=== PATIENT | female | born 1990 | race Hispanic/Latino ===

== ENCOUNTER 2018-02-23 10:44 | Emergency (ER) | payer MEDICAID ==
[2018-02-23 11:24] LABS: RAPID GROUP A STREP NEGATIVE (NEGATIVE)
[2018-02-23] MEDS ORDERED: ACETAMINOPHEN EXTRA STRENGTH 500 MG TABLET ONE (11:47)
== END 2018-02-23 12:26 | disposition home or self-care (01) ==
LOC: EDH 10:44
DX: J11.1 Influenza due to unidentified influenza virus with other respiratory manifestations (principal); R05 Cough
CPT/HCPCS: 71046; 81025; 87804; 87880

== ENCOUNTER 2018-11-26 06:07 | Day surgery (SDC) | payer MEDICAID ==
[2018-11-22 15:34] LABS: BASOPHILS % (AUTO) 0.4 % (0.0-5.0); HEMATOCRIT 40.5 % (36-48); LYMPHOCYTES % (AUTO) 20.9 % (21.0-51.0); MEAN CORPUSCULAR HEMOGLOBIN 26.4 pg (27.0-33.0); MEAN CORPUSCULAR HGB CONC 32.5 g/dL (32.0-36.0); MEAN CORPUSCULAR VOLUME 81.3 fL (79-99); MONOCYTES % (AUTO) 8.7 % (3.0-13.0); PLATELET COUNT (AUTO) 314 K/uL (130-400); RED BLOOD CELL COUNT(AUTO) 4.98 MIL/uL (4.00-5.50); RED CELL DISTRIBUTION WIDTH 12.7 % (11.0-15.5); WHITE BLOOD COUNT (AUTO) 7.3 K/uL (4.8-10.8)
[~2018-11-26] VITALS: Ht 154.9 cm; Wt 85.3 kg
[2018-11-26] VITALS (14 sets, daily range): BP systolic 111–129; BP diastolic 54–75
[2018-11-26] MEDS ORDERED: LACTATED RINGERS 1000ML 1,000 ML IV ONE (06:28)
[2018-11-26] MEDS ORDERED: LIDOCAINE PF 2% 5ML ABBOJECT ONE (09:13)
[2018-11-26] MEDS ORDERED: MIDAZOLAM HCL 1 MG/ML 2ML VIAL ONE (09:14)
[2018-11-26] MEDS ORDERED: ROCURONIUM 10MG/1ML SYR 10 MG/ML ML ONE (09:14)
[2018-11-26] MEDS ORDERED: FENTANYL CITRATE PF 50 MCG/1 ML 2ML VIAL ONE (09:14)
[2018-11-26] MEDS ORDERED: PROPOFOL 10 MG/ML 20ML VIAL IV ONE (09:14)
[2018-11-26] MEDS ORDERED: DEXAMETHASONE SOD PHOSPHATE 10MG/ML 1ML VIAL ONE (09:16)
[2018-11-26] MEDS ORDERED: GLYCOPYRROLATE 1 MG/5 ML SYRINGE ONE (09:17)
[2018-11-26] MEDS ORDERED: ONDANSETRON HCL 4 MG/2 ML VIAL ONE (09:17)
[2018-11-26] MEDS ORDERED: NEOSTIGMINE 5MG/5ML SYR IV ONE (09:17)
[2018-11-26] MEDS ORDERED: KETOROLAC TROMETHAMINE 30MG/ML ONE (09:17)
[2018-11-26] MEDS ORDERED: MEPERIDINE-PF 25 MG/ML SYG ONE (10:41)
--- NOTE | 2018-11-26 11:15 | NUR ---
PATIENT ARRIVED PATIENT BROUGHT TO DAY PATIENT VIA BED, PATIENT AWAKE AND ORIENTED BUT DROWSY. PATIENT STATES SHE HAS PAIN OF 10 OUT OF 10. EXPLAINED TO PATIENT THAT SHE WAS GIVEN DEMEROL IN PACU BY FLACO BAIN. DRESSINGS (BANDAIDS X2) TO MID ABDOMEN. BANDAIDS ARE DRY AND INTACT, NO DRAINAGE OR BLEEDING NOTED.
--- NOTE | 2018-11-26 11:30 | NUR ---
CALLED DR MITCHELL'S OFFICE AND SPOKE WITH OBED. INFORMED HER THAT PATIENT NEEDS PRESCRIPTION FOR PAIN MEDICATIONS. PER OBED, SHE WILL RELAY MESSAGE TO THE NURSE.
--- NOTE | 2018-11-26 11:50 | NUR ---
SPOKE WITH DR LR'S NURSE, RAMSES. PER RAMSES SHE RECEIVED A VERBAL ORDER FROM DR LR REGARDING PAIN MEDICATION FOR THE PATIENT. RAMSES WILL CALL IN PRESCRIPTION TO PATIENT'S PHARMACY ([facility] IN [place]). '
--- NOTE | 2018-11-26 12:00 | NUR ---
DISCHARGE INSTRUCTIONS PROVIDED TO PATIENT'S MOTHER/CAREGIVER. PROVIDED FOLLOW UP APPOINTMENT PROVIDED AND INSTRUCTIONS ON LAPAROSCOPIC BTL AFTER CARE GIVEN WELL HANDOUTS. SIGNS/SYMPTOMS TO MONITOR/REPORT WERE ALSO EXPLAINED. ALL QUESTIONS/CONCERNS ADDRESSED.
--- NOTE | 2018-11-26 12:10 | NUR ---
PATIENT DISCHARGED FROM FACILITY VIA WHEELCHAIR BY MYSELF. PATIENT ASSISTED INTO PRIVATE VEHICLE DRIVEN BY HER MOTHER.
== END 2018-11-26 12:10 ==
LOC: DAH 06:07
PROVIDERS: ATTEND Specialist
DX: Z30.2 Encounter for sterilization (principal); E66.01 Morbid (severe) obesity due to excess calories
CPT/HCPCS: 36415; 58671; 84703; 85025; 86850; 86900; 86901; A4215 ×2; A4221; A4222; A4223; A4264; A4351; A6260; C1769 ×2; J1100; J1885; J2001; J2175; J2250; J2405; J2704; J2710; J3010; J3490; J7030; J7120

== ENCOUNTER 2019-04-22 09:53 | Emergency (ER) | payer MEDICAID ==
[2019-04-22 10:19] LABS: BASOPHILS % (AUTO) 0.8 % (0.0-5.0); EOSINOPHILS % (AUTO) 6.5 % (0.0-8.0); HEMATOCRIT 38.4 % (36-48); LYMPHOCYTES % (AUTO) 23.5 % (21.0-51.0); MEAN CORPUSCULAR HEMOGLOBIN 25.1 pg (27.0-33.0); MEAN CORPUSCULAR HGB CONC 31.3 g/dL (32.0-36.0); MEAN CORPUSCULAR VOLUME 80.3 fL (79-99); MONOCYTES % (AUTO) 10.4 % (3.0-13.0); NEUTROPHILS % (AUTO) 58.6 % (40.0-77.0); PLATELET COUNT (AUTO) 269 K/uL (130-400); RED BLOOD CELL COUNT(AUTO) 4.78 MIL/uL (4.00-5.50); RED CELL DISTRIBUTION WIDTH 12.6 % (11.0-15.5); WHITE BLOOD COUNT (AUTO) 6.4 K/uL (4.8-10.8)
[2019-04-22 10:25] LABS: CARBON DIOXIDE 30 mmol/L (21-32); CHLORIDE 104 mmol/L (101-111); CREATININE 0.6 mg/dL (0.5-1.5); GLOMERULAR FILTR. RATE CALC 127 mL/min (>60); GLUCOSE,RANDOM 71 mg/dL (70-105); POTASSIUM 4.1 mmol/L (3.5-5.1); SODIUM SERUM 139 mmol/L (136-145); UREA NITROGEN, BLOOD 14 mg/dL (7-18)
[2019-04-22 10:27] LABS: APPEARANCE,URINE Cloudy (CLEAR); BILIRUBIN,URINE Negative (NEGATIVE); COLOR,URINE Yellow (YELLOW); GLUCOSE, URINE (UA) Negative (NEGATIVE); KETONES,URINE Negative (NEGATIVE); LEUKOCYTE ESTERASE ,URINE Moderate (NEGATIVE); NITRATE,URINE Negative (NEGATIVE); OCCULT BLOOD,URINE Negative (NEGATIVE); PH,URINE 7.5 (5.0-8.0); PROTEIN,URINE Negative (NEGATIVE)
[2019-04-22 10:29] LABS: ALANINE AMINOTRANSFERASE 19 U/L (12-78); ALBUMIN 3.3 g/dL (3.5-5.0); ASPARTATE AMINOTRANSFERASE 12 U/L (10-37); BILIRUBIN,TOTAL 0.3 mg/dL (0.2-1.0); CREATINE KINASE, TOTAL 60 U/L (21-232); TOTAL PROTEIN, SERUM 6.8 g/dL (6.0-8.3)
[2019-04-22 10:30] LABS: HCG,QUAL RESULT NEGATIVE (NEGATIVE)
[2019-04-22 10:34] LABS: ACETAMINOPHEN < 1 mcg/mL (10-30); ALCOHOL, BLOOD < 3 mg/dL (0-10); SALICYLATE < 2.8 mg/dL (2.8-20.0)
[2019-04-22 10:35] LABS: AMPHET/METH SCREEN,URINE NEGATIVE (NEGATIVE); BARBITURATE SCREEN, URINE NEGATIVE (NEGATIVE); BENZODIAZEPINES SCREEN,URINE NEGATIVE (NEGATIVE); CANNABINOID SCREEN,URINE NEGATIVE (NEGATIVE); COCAINE SCREEN,URINE NEGATIVE (NEGATIVE); OPIATE SCREEN,URINE NEGATIVE (NEGATIVE); PHENCYCLIDINE SCREEN,URINE NEGATIVE (NEGATIVE)
[2019-04-22 10:52] LABS: INR 1.03 (0.85-1.15); PARTIAL THROMBOPLASTIN TIME 35.3 SEC (26.3-35.5); PROTHROMBIN TIME 10.8 SEC (9.6-11.6)
[2019-04-22] MEDS ORDERED: CEPHALEXIN 500 MG CAPSULE ONE (11:02)
[2019-04-22 11:12] LABS: BACTERIA,URINE Few /HPF (None Seen); RBC,URINE 0-1 /HPF (0-1); SQUAMOUS EPITHELIAL CELL,UR Moderate /HPF (0-2)
[2019-04-22] MEDS ORDERED: ASPIRIN 325 MG TABLET ONE (12:57)
== END 2019-04-22 13:19 | disposition home or self-care (01) ==
LOC: EDH 09:53
DX: R07.89 Other chest pain (principal); F41.9 Anxiety disorder, unspecified; N39.0 Urinary tract infection, site not specified; Z88.0 Allergy status to penicillin
CPT/HCPCS: 36415; 71045; 80053; 80305; 81001; 81025; 82550; 84484; 85025; 85610; 85730; 87077; 87088; 87186; 93005; 99285; G0480 ×2; G0481

== ENCOUNTER 2021-11-16 09:28 | Emergency (ER) | payer MEDICAID ==
[~2021-11-16] VITALS: Ht 152.4 cm; Wt 81.6 kg
[2021-11-16] MEDS ORDERED: IBUPROFEN 600 MG TABLET PO ONE (12:00)
[2021-11-16] MEDS ORDERED: CYCLOBENZAPRINE HCL 10 MG TABLET PO ONE (12:00)
[2021-11-16 12:18] LABS: APPEARANCE,URINE CLOUDY (CLEAR); BILIRUBIN,URINE MODERATE mg/dL (NEGATIVE); COLOR,URINE RED (YELLOW); GLUCOSE, URINE (UA) NEGATIVE (NEGATIVE); KETONES,URINE 15 mg/dL (NEGATIVE); LEUKOCYTE ESTERASE ,URINE MODERATE Leu/uL (NEGATIVE); NITRATE,URINE POSITIVE (NEGATIVE); OCCULT BLOOD,URINE LARGE (NEGATIVE); PH,URINE 6.5 (5.0-8.0); PROTEIN,URINE >=300 mg/dL (NEGATIVE)
[2021-11-16 12:38] LABS: RBC,URINE TNTC /HPF (0-1)
[2021-11-16 12:39] LABS: BACTERIA,URINE Moderate /HPF (None Seen)
[2021-11-16] MEDS ORDERED: IBUP-2070 PO (13:21)
[2021-11-16] MEDS ORDERED: CYCL10TA16 PO (13:21)
[2021-11-16 13:37] VITALS: BP 134/78
== END 2021-11-16 13:34 | disposition home or self-care (01) ==
LOC: EDH 09:28
DX: R07.89 Other chest pain (principal); R51.9 Headache, unspecified; M54.2 Cervicalgia; M54.6 Pain in thoracic spine; Z88.0 Allergy status to penicillin; Z79.899 Other long term (current) drug therapy; Z98.890 Other specified postprocedural states; Y08.89XA Assault by other specified means, initial encounter; Y93.89 Activity, other specified; Y92.89 Other specified places as the place of occurrence of the external cause; Y99.8 Other external cause status
CPT/HCPCS: 70450; 71045; 72125; 81001; 81025; 87088

== ENCOUNTER 2022-03-06 21:26 | Emergency (ER) | payer MEDICAID ==
[~2022-03-06] VITALS: Ht 152.4 cm; Wt 94.8 kg
[~2022-03-06 21:26] MED LIST: CYCL10TA16 PO; IBUP-2070 PO
[2022-03-06 22:23] LABS: APPEARANCE,URINE CLEAR (CLEAR); BILIRUBIN,URINE NEGATIVE (NEGATIVE); COLOR,URINE LIGHT-YELLOW (YELLOW); GLUCOSE, URINE (UA) NEGATIVE (NEGATIVE); KETONES,URINE 5 mg/dL (NEGATIVE); LEUKOCYTE ESTERASE ,URINE 250 Leu/uL (NEGATIVE); NITRATE,URINE NEGATIVE (NEGATIVE); OCCULT BLOOD,URINE NEGATIVE (NEGATIVE); PH,URINE 5.5 (5.0-8.0); PROTEIN,URINE 20 mg/dL (NEGATIVE)
[2022-03-06 22:26] LABS: MUCUS,URINE RARE LPF (None Seen); SQUAMOUS EPITHELIAL CELL,UR FEW /HPF (0-2)
[2022-03-06 22:31] LABS: HCG,QUALITATIVE URINE NEGATIVE (NEGATIVE)
[2022-03-06] MEDS ORDERED: PROC-13 PO (23:26)
[2022-03-06] MEDS ORDERED: GABA600T10 PO (23:26)
[2022-03-06] MEDS ORDERED: MACR100 PO (23:30)
[2022-03-06] MEDS ORDERED: NITROFURANTOIN MONOHYD/M-CRYST 100 MG CAPSULE PO ONE ×2 (23:30→23:31)
[2022-03-06 23:35] VITALS: BP 132/73
== END 2022-03-06 23:41 | disposition home or self-care (01) ==
LOC: EDH 21:26
DX: R51.9 Headache, unspecified (principal); M26.629 Arthralgia of temporomandibular joint, unspecified side; Z98.51 Tubal ligation status; Z88.0 Allergy status to penicillin
CPT/HCPCS: 81001; 81025; 87088

== ENCOUNTER 2022-03-09 19:17 | Emergency (ER) | payer MEDICAID ==
[~2022-03-09] VITALS: Ht 152.4 cm; Wt 95.3 kg
[~2022-03-09 19:17] MED LIST changes: +GABA600T10 PO; +MACR100 PO; +PROC-13 PO
[2022-03-09 19:40] VITALS: BP 129/91
[2022-03-09] MEDS ORDERED: KETOROLAC 30MG VIAL (30MG/ML) IM ONE (21:30)
[2022-03-09] MEDS ORDERED: IBUP-2070 PO (22:40)
[2022-03-09] MEDS ORDERED: CYCL10TA16 PO (22:40)
== END 2022-03-09 22:59 | disposition home or self-care (01) ==
LOC: EDH 19:17
DX: S46.912A Strain of unspecified muscle, fascia and tendon at shoulder and upper arm level, left arm, initial encounter (principal); W18.39XA Other fall on same level, initial encounter; Y93.89 Activity, other specified; Y92.89 Other specified places as the place of occurrence of the external cause; Y99.8 Other external cause status; Z79.899 Other long term (current) drug therapy; Z88.0 Allergy status to penicillin
CPT/HCPCS: 99283; 73030; 96372; J1885